=== PATIENT | male | born 2000 | race Hispanic/Latino ===

== ENCOUNTER 2022-12-04 08:46 | Emergency (ER) | payer SELFPAY ==
[~2022-12-04] VITALS: Ht 165.1 cm; Wt 77.1 kg
[2022-12-04] MEDS ORDERED: KETOROLAC TROMETHAMINE 30 MG/ML VIAL IM STA (09:00)
[2022-12-04] MEDS ORDERED: FENTANYL CITRATE/PF 100MCG/2 ML INJ IJ PRN (09:00)
[2022-12-04] MEDS ORDERED: HYDROCODON-ACE1 EA12 PO (12:05)
== END 2022-12-04 12:49 | disposition home or self-care (01) ==
LOC: ER 08:54
DX: S42.392A Other fracture of shaft of left humerus, initial encounter for closed fracture (principal); V13.4XXA Pedal cycle driver injured in collision with car, pick-up truck or van in traffic accident, initial encounter; Y92.488 Other paved roadways as the place of occurrence of the external cause
CPT/HCPCS: 24505; 73030; 73060; 73080; 73110; 99283; J1885; J3010